=== PATIENT | female | born 1985 | race Caucasian/White ===

== ENCOUNTER 2016-11-11 19:48 | Emergency (ER) | payer MEDICAID ==
[~2016-11-11] VITALS: Ht 167.6 cm; Wt 125.9 kg
[~2016-11-11 19:48] MED LIST: ALBU8HFA4 IH; CHLO100T24 PO; CLOT15C TP; DIVA500T69 PO; LAMO25 PO; METR500 PO; MULT-29 PO; NYST15CR35 TP; SERT100T PO
[2016-11-11] MEDS ORDERED: HALOPERIDOL LACTATE 5 MG/ML VIAL IM ONE (21:00)
[2016-11-11] MEDS ORDERED: DiphenhydrAMINE HCL 50 MG/ML VIAL IM ONE (21:00)
[2016-11-11] MEDS ORDERED: LORazepam 2 MG/ML VIAL IM ONE (21:00)
[2016-11-11] MEDS ORDERED: BACITRACIN 0.9 GM PACKET OINTMENT TP ONE (23:15)
[2016-11-12 01:05] VITALS: BP 109/82
[2016-11-12] MEDS ORDERED: BENZ0.5T6 PO (08:53)
[2016-11-12] MEDS ORDERED: ARIP2 PO (08:53)
[2016-11-12] MEDS ORDERED: LITH8SOL6 PO (08:53)
[2016-11-12] MEDS ORDERED: OLAN2.5T3 PO (08:53)
== END 2016-11-12 01:26 | disposition home or self-care (01) ==
LOC: EMS 19:51
DX: F25.9 Schizoaffective disorder, unspecified (principal); L89.899 Pressure ulcer of other site, unspecified stage; F31.9 Bipolar disorder, unspecified; F41.9 Anxiety disorder, unspecified; F17.210 Nicotine dependence, cigarettes, uncomplicated; Z88.8 Allergy status to other drugs, medicaments and biological substances
CPT/HCPCS: 96372; 99284; J1200; J1630; J2060

== ENCOUNTER 2016-11-12 08:42 | Inpatient (IN) | payer MEDICAID ==
[~2016-11-12] VITALS: Ht 167.6 cm; Wt 135.2 kg
[2016-11-12] MEDS ORDERED: LITH8SOL6 PO (08:53)
[2016-11-12] MEDS ORDERED: OLAN2.5T3 PO (08:53)
[2016-11-12] MEDS ORDERED: BENZ0.5T6 PO (08:53)
[2016-11-12] MEDS ORDERED: ARIP2 PO (08:53)
[2016-11-12] MEDS ORDERED: HALOPERIDOL LACTATE 5 MG/ML VIAL IM ONE (09:45)
[2016-11-12] MEDS ORDERED: LORazepam 2 MG/ML VIAL IM ONE (09:45)
[2016-11-12] MEDS ORDERED: DiphenhydrAMINE HCL 50 MG/ML VIAL IM ONE (09:45)
[2016-11-12 10:24] LABS: BASOPHILS % (AUTO) 0.3 % (0.0-2.0); EOSINOPHILS % (AUTO) 4.3 % (1.0-6.0); HEMATOCRIT 39.6 % (36-46); HEMOGLOBIN 12.8 g/dL (12.0-16.0); LYMPHOCYTES # (AUTO) 1.9 K/uL (1.0-4.8); LYMPHOCYTES % (AUTO) 25.7 % (22.0-44.0); MEAN CORPUSCULAR HEMOGLOBIN 26.9 pg (26.0-34.0); MEAN CORPUSCULAR HGB CONC 32.4 G/dL (31.0-37.0); MEAN CORPUSCULAR VOLUME 83 fL (80-100); MONOCYTES # (AUTO) 0.5 K/uL (0.1-1.0); MONOCYTES % (AUTO) 6.9 % (2.0-9.0); NEUTROPHILS # (AUTO) 4.5 K/uL (1.8-7.7); NEUTROPHILS % (AUTO) 62.8 % (40.0-70.0); PLATELET COUNT (AUTO) 179 K/uL (150-450); RED BLOOD CELL COUNT(AUTO) 4.76 MIL/uL (4.00-5.20); RED CELL DISTRIBUTION WIDTH 13.2 % (11.5-14.5); WHITE BLOOD COUNT (AUTO) 7.2 K/uL (4.5-11.0)
[2016-11-12 10:33] LABS: ANION GAP 6 mmol/L (8-16); CALCIUM, TOTAL 9.2 mg/dL (8.8-10.5); CARBON DIOXIDE 32 mmol/L (22-29); CHLORIDE 107 mmol/L (98-107); CREATININE 0.73 mg/dL (0.60-1.30); GLOMERULAR FILTR. RATE CALC > 60 mL/min (>60); POTASSIUM 3.5 mmol/L (3.5-5.1); SODIUM SERUM 145 mmol/L (136-145); UREA NITROGEN, BLOOD 12 mg/dL (7-18)
[2016-11-12 10:39] LABS: ALANINE AMINOTRANSFERASE 36 U/L (12-78); ALBUMIN 2.9 g/dL (3.4-5.0); ASPARTATE AMINOTRANSFERASE 21 U/L (15-37); BILIRUBIN,TOTAL 0.4 mg/dL (0.1-1.0); TOTAL PROTEIN, SERUM 6.7 g/dL (6.4-8.2)
[2016-11-12] MEDS ORDERED: OLANZapine 5 MG RAPDIS TABLET PO PRN (20:45)
[2016-11-12 21:20] LABS: CHOL/HDL RATIO 1.9 (3.9-5.7); THYROID STIMULATING HORMONE 1.17 uIU/mL (0.36-3.74)
[2016-11-12 22:02] VITALS: BP 114/60
[2016-11-12] MEDS ORDERED: -PHARMACY VACCINE NOTE- MISC ONE ×2 (22:15)
[2016-11-12] MEDS ORDERED: PNEUMOCOCCAL VACCINE POLYVALENT 0.5 ML VIAL [PPSV23] IM ONE (22:15)
[2016-11-12] MEDS ORDERED: ALBUTEROL SULFATE HFA 90 MCG/PUFF 8 GM INHALER IH PRN (23:15)
[2016-11-13 05:51] VITALS: BP 116/64
[2016-11-13 08:02] LABS: APPEARANCE,URINE CLOUDY (CLEAR); GLUCOSE, URINE (UA) NEGATIVE (NEGATIVE); KETONES,URINE NEGATIVE (NEGATIVE); LEUKOCYTE ESTERASE ,URINE TRACE (NEGATIVE); OCCULT BLOOD,URINE LARGE (NEGATIVE); PH,URINE 6.5 (5.0-8.0); PROTEIN,URINE NEGATIVE (NEGATIVE)
[2016-11-13 08:10] LABS: ADD UA MICROSCOPIC YES
[2016-11-13 08:16] LABS: CALCIUM OXALATE CRYSTALS,UR Many /LPF (None Seen); SQUAMOUS EPITHELIAL CELL,UR Many /LPF (None Seen)
[2016-11-13] MEDS: NICOTINE 14 MG/24 HOUR PATCH TD SCH (08:53)
[2016-11-13] MEDS ORDERED: MAG HYDROX/AL HYDROX/SIMETH ES 30 ML SUSPENSION UDCUP PO PRN (12:30)
[2016-11-13] MEDS ORDERED: TUBERCULIN, PURIFIED PROTEIN DERIVATIVE 5 TU/0.1 ML SYG ID ONE (12:30)
[2016-11-13] MEDS ORDERED: LOPERAMIDE HCL 2 MG CAPSULE PO PRN (12:30)
[2016-11-13] MEDS ORDERED: CYANOCOBALAMIN 1,000 MCG/ML VIAL IM ONE (12:30)
[2016-11-13] MEDS ORDERED: PROMETHAZINE HCL 25 MG TABLET PO PRN (12:30)
[2016-11-13] MEDS ORDERED: HydrOXYzine PAMOATE 50 MG CAPSULE PO PRN (12:30)
[2016-11-13] MEDS ORDERED: MAGNESIUM HYDROXIDE SUSPENSION 30 ML UDCUP PO PRN (12:30)
[2016-11-13] MEDS ORDERED: GuaiFENesin/D-METHORPHAN [SUGAR-FREE] 200-20MG/10 ML SYRUP UDCUP PO PRN (12:30)
[2016-11-13] MEDS ORDERED: ACETAMINOPHEN 325 MG TABLET PO PRN (12:30)
[2016-11-13 16:30] VITALS: BP 117/63
[2016-11-13] MEDS: THIAMINE HCL 100 MG TABLET PO SCH (17:00)
[2016-11-13] MEDS ORDERED: DiphenhydrAMINE HCL 50 MG/ML VIAL ONE (17:58)
[2016-11-13] MEDS ORDERED: LORazepam 2 MG/ML VIAL ONE (17:58)
[2016-11-13] MEDS ORDERED: HALOPERIDOL LACTATE 5 MG/ML VIAL ONE (17:59)
[2016-11-13] MEDS ORDERED: HALOPERIDOL LACTATE 5 MG/ML VIAL IM PRN (18:00)
[2016-11-13] MEDS ORDERED: HALOPERIDOL LACTATE 5 MG/ML VIAL IM ONE (18:00)
[2016-11-13] MEDS ORDERED: LORazepam 2 MG/ML VIAL IM ONE (18:00)
[2016-11-13] MEDS ORDERED: DiphenhydrAMINE HCL 50 MG/ML VIAL IM ONE (18:00)
[2016-11-13] MEDS ORDERED: OLANZapine 5 MG RAPDIS TABLET PO SCH (21:00)
[2016-11-13] MEDS: DIVALPROEX SODIUM 500 MG ER TABLET PO SCH (21:17)
[2016-11-14] MEDS: NICOTINE 14 MG/24 HOUR PATCH TD SCH (09:00)
[2016-11-14] MEDS: FOLIC ACID 1 MG TABLET PO SCH (09:17)
[2016-11-14] MEDS: NALTREXONE HCL 50 MG TABLET PO SCH (09:17)
[2016-11-14] MEDS: THIAMINE HCL 100 MG TABLET PO SCH ×3 (09:17→17:00)
[2016-11-14] MEDS: LORazepam 2 MG TABLET PO PRN (09:17)
[2016-11-14] MEDS: MULTIVITAMINS WITH MINERALS, THERAPEUTIC TABLET PO SCH (09:17)
[2016-11-14] MEDS ORDERED: LORazepam 2 MG/ML VIAL ONE (11:25)
[2016-11-14] MEDS ORDERED: LORazepam 2 MG/ML VIAL IM ONE ×2 (11:30→15:45)
[2016-11-14] MEDS ORDERED: HALOPERIDOL LACTATE 5 MG/ML VIAL IM ONE ×2 (11:30→15:45)
[2016-11-14] MEDS ORDERED: DiphenhydrAMINE HCL 50 MG/ML VIAL IM ONE ×2 (11:30→15:45)
[2016-11-14] MEDS: DIVALPROEX SODIUM 500 MG ER TABLET PO SCH (21:26)
[2016-11-14] MEDS: OLANZapine 10 MG RAPDIS TABLET PO SCH (21:26)
[2016-11-15] MEDS: NALTREXONE HCL 50 MG TABLET PO SCH (09:00)
[2016-11-15] MEDS: THIAMINE HCL 100 MG TABLET PO SCH ×2 (09:00→16:59)
[2016-11-15] MEDS: NICOTINE 14 MG/24 HOUR PATCH TD SCH (09:00)
[2016-11-15] MEDS: MULTIVITAMINS WITH MINERALS, THERAPEUTIC TABLET PO SCH (09:00)
[2016-11-15] MEDS: FOLIC ACID 1 MG TABLET PO SCH (09:00)
[2016-11-15 16:08] VITALS: BP 108/67
[2016-11-15] MEDS: DIVALPROEX SODIUM 500 MG ER TABLET PO SCH (20:20)
[2016-11-15] MEDS: OLANZapine 10 MG RAPDIS TABLET PO SCH (20:20)
[2016-11-15] MEDS: LITHIUM CARBONATE 300 MG CAPSULE PO SCH (20:20)
[2016-11-16] MEDS: MULTIVITAMINS WITH MINERALS, THERAPEUTIC TABLET PO SCH (08:46)
[2016-11-16] MEDS: FOLIC ACID 1 MG TABLET PO SCH (08:46)
[2016-11-16] MEDS: THIAMINE HCL 100 MG TABLET PO SCH ×2 (08:46→16:06)
[2016-11-16] MEDS: NALTREXONE HCL 50 MG TABLET PO SCH (08:46)
[2016-11-16] MEDS: NICOTINE 14 MG/24 HOUR PATCH TD SCH (08:51)
[2016-11-16 16:00] VITALS: BP 120/63
[2016-11-16] MEDS: LITHIUM CARBONATE 300 MG CAPSULE PO SCH (20:27)
[2016-11-16] MEDS: OLANZapine 10 MG RAPDIS TABLET PO SCH (20:27)
[2016-11-16] MEDS: DIVALPROEX SODIUM 500 MG ER TABLET PO SCH (20:27)
[2016-11-17 07:15] VITALS: BP 135/77
[2016-11-17] MEDS: FOLIC ACID 1 MG TABLET PO SCH (08:24)
[2016-11-17] MEDS: NALTREXONE HCL 50 MG TABLET PO SCH (08:24)
[2016-11-17] MEDS: MULTIVITAMINS WITH MINERALS, THERAPEUTIC TABLET PO SCH (08:24)
[2016-11-17] MEDS: THIAMINE HCL 100 MG TABLET PO SCH ×2 (08:24→16:08)
[2016-11-17] MEDS: NICOTINE 14 MG/24 HOUR PATCH TD SCH (09:00)
[2016-11-17 16:00] VITALS: BP 109/64
[2016-11-17] MEDS: OLANZapine 10 MG RAPDIS TABLET PO SCH (20:10)
[2016-11-17] MEDS: DIVALPROEX SODIUM 500 MG ER TABLET PO SCH (20:10)
[2016-11-17] MEDS: LITHIUM CARBONATE 300 MG CAPSULE PO SCH (20:10)
[2016-11-18 06:15] VITALS: BP 111/82
[2016-11-18] MEDS: THIAMINE HCL 100 MG TABLET PO SCH ×2 (08:56→16:35)
[2016-11-18] MEDS: NICOTINE 14 MG/24 HOUR PATCH TD SCH (08:56)
[2016-11-18] MEDS: NALTREXONE HCL 50 MG TABLET PO SCH (08:56)
[2016-11-18] MEDS: FOLIC ACID 1 MG TABLET PO SCH (08:56)
[2016-11-18] MEDS: MULTIVITAMINS WITH MINERALS, THERAPEUTIC TABLET PO SCH (08:56)
[2016-11-18 09:14] VITALS: BP 122/72
[2016-11-18 16:10] VITALS: BP 131/84
[2016-11-18] MEDS: LITHIUM CARBONATE 300 MG CAPSULE PO SCH (20:20)
[2016-11-18] MEDS: OLANZapine 10 MG RAPDIS TABLET PO SCH (20:20)
[2016-11-18] MEDS: DIVALPROEX SODIUM 500 MG ER TABLET PO SCH (20:20)
[2016-11-18] MEDS: ZOLPIDEM TARTRATE 10 MG TABLET PO PRN (22:17)
[2016-11-19] MEDS: NICOTINE 14 MG/24 HOUR PATCH TD SCH (08:45)
[2016-11-19] MEDS: NALTREXONE HCL 50 MG TABLET PO SCH (08:46)
[2016-11-19] MEDS: THIAMINE HCL 100 MG TABLET PO SCH ×2 (08:46→16:05)
[2016-11-19] MEDS: MULTIVITAMINS WITH MINERALS, THERAPEUTIC TABLET PO SCH (08:46)
[2016-11-19] MEDS: FOLIC ACID 1 MG TABLET PO SCH (08:46)
[2016-11-19 16:00] VITALS: BP 103/65
[2016-11-19] MEDS: LITHIUM CARBONATE 300 MG CAPSULE PO SCH (20:05)
[2016-11-19] MEDS: OLANZapine 10 MG RAPDIS TABLET PO SCH (20:05)
[2016-11-19] MEDS: DIVALPROEX SODIUM 500 MG ER TABLET PO SCH (20:05)
[2016-11-20 07:03] VITALS: BP 115/70
[2016-11-20 08:40] LABS: LITHIUM 0.55 mmol/L (0.60-1.20)
[2016-11-20] MEDS: MULTIVITAMINS WITH MINERALS, THERAPEUTIC TABLET PO SCH (08:46)
[2016-11-20] MEDS: NALTREXONE HCL 50 MG TABLET PO SCH (08:46)
[2016-11-20] MEDS: THIAMINE HCL 100 MG TABLET PO SCH ×2 (08:46→16:23)
[2016-11-20] MEDS: FOLIC ACID 1 MG TABLET PO SCH (08:47)
[2016-11-20] MEDS: NICOTINE 14 MG/24 HOUR PATCH TD SCH (08:47)
[2016-11-20 16:03] VITALS: BP 119/73
[2016-11-20] MEDS: OLANZapine 10 MG RAPDIS TABLET PO SCH (20:07)
[2016-11-20] MEDS: LITHIUM CARBONATE 600 MG CAPSULE PO SCH (20:07)
[2016-11-20] MEDS: DIVALPROEX SODIUM 500 MG ER TABLET PO SCH (20:08)
[2016-11-20] MEDS: ZOLPIDEM TARTRATE 10 MG TABLET PO PRN (21:01)
[2016-11-21] MEDS: MULTIVITAMINS WITH MINERALS, THERAPEUTIC TABLET PO SCH (08:26)
[2016-11-21] MEDS: THIAMINE HCL 100 MG TABLET PO SCH ×2 (08:26→16:33)
[2016-11-21] MEDS: NALTREXONE HCL 50 MG TABLET PO SCH (08:26)
[2016-11-21] MEDS: FOLIC ACID 1 MG TABLET PO SCH (08:26)
[2016-11-21] MEDS: NICOTINE 14 MG/24 HOUR PATCH TD SCH (09:00)
[2016-11-21] MEDS ORDERED: PERMETHRIN 5% 60 GM CREAM TP ONE (10:00)
[2016-11-21] MEDS ORDERED: PERMETHRIN 1% 60 ML LOTION TP ONE (12:00)
[2016-11-21 16:22] VITALS: BP 126/81
[2016-11-21] MEDS: DIVALPROEX SODIUM 500 MG ER TABLET PO SCH (20:06)
[2016-11-21] MEDS: MIRTAZAPINE 15 MG TABLET PO SCH (20:07)
[2016-11-21] MEDS: OLANZapine 10 MG RAPDIS TABLET PO SCH (20:07)
[2016-11-21] MEDS: LITHIUM CARBONATE 600 MG CAPSULE PO SCH (20:07)
[2016-11-22 06:24] VITALS: BP 126/82
[2016-11-22] MEDS: NICOTINE 14 MG/24 HOUR PATCH TD SCH (09:00)
[2016-11-22] MEDS: MULTIVITAMINS WITH MINERALS, THERAPEUTIC TABLET PO SCH (09:23)
[2016-11-22] MEDS: NALTREXONE HCL 50 MG TABLET PO SCH (09:23)
[2016-11-22] MEDS: FOLIC ACID 1 MG TABLET PO SCH (09:23)
[2016-11-22] MEDS: THIAMINE HCL 100 MG TABLET PO SCH ×2 (09:23→16:02)
[2016-11-22 16:16] VITALS: BP 112/60
[2016-11-22] MEDS: DIVALPROEX SODIUM 500 MG ER TABLET PO SCH (20:04)
[2016-11-22] MEDS: LITHIUM CARBONATE 600 MG CAPSULE PO SCH (20:04)
[2016-11-22] MEDS: OLANZapine 10 MG RAPDIS TABLET PO SCH (20:04)
[2016-11-22] MEDS: MIRTAZAPINE 15 MG TABLET PO SCH (20:04)
[2016-11-23 08:16] VITALS: BP 122/86
[2016-11-23] MEDS: NICOTINE 14 MG/24 HOUR PATCH TD SCH (09:00)
[2016-11-23] MEDS: NALTREXONE HCL 50 MG TABLET PO SCH (09:09)
[2016-11-23] MEDS: THIAMINE HCL 100 MG TABLET PO SCH (09:09)
[2016-11-23] MEDS: MULTIVITAMINS WITH MINERALS, THERAPEUTIC TABLET PO SCH (09:09)
[2016-11-23] MEDS: FOLIC ACID 1 MG TABLET PO SCH (09:09)
[2016-11-23 16:03] VITALS: BP 121/61
[2016-11-23] MEDS ORDERED: IVERMECTIN 3 MG TABLET PO ONE (17:30)
[2016-11-23] MEDS: DIVALPROEX SODIUM 500 MG ER TABLET PO SCH (20:18)
[2016-11-23] MEDS: MIRTAZAPINE 15 MG TABLET PO SCH (20:19)
[2016-11-23] MEDS: OLANZapine 10 MG RAPDIS TABLET PO SCH (20:19)
[2016-11-23] MEDS: LITHIUM CARBONATE 600 MG CAPSULE PO SCH (20:19)
[2016-11-24 06:50] VITALS: BP 118/70
[2016-11-24] MEDS: NALTREXONE HCL 50 MG TABLET PO SCH (08:01)
[2016-11-24] MEDS: MULTIVITAMINS WITH MINERALS, THERAPEUTIC TABLET PO SCH (08:01)
[2016-11-24 08:43] VITALS: BP 117/67
[2016-11-24 16:08] VITALS: BP 122/81
[2016-11-24] MEDS: OLANZapine 10 MG RAPDIS TABLET PO SCH (20:03)
[2016-11-24] MEDS: LITHIUM CARBONATE 600 MG CAPSULE PO SCH (20:03)
[2016-11-24] MEDS: DIVALPROEX SODIUM 500 MG ER TABLET PO SCH (20:04)
[2016-11-24] MEDS: MIRTAZAPINE 15 MG TABLET PO SCH (20:04)
[2016-11-25 07:13] VITALS: BP 110/72
[2016-11-25] MEDS: MULTIVITAMINS WITH MINERALS, THERAPEUTIC TABLET PO SCH (08:03)
[2016-11-25] MEDS: NALTREXONE HCL 50 MG TABLET PO SCH (08:03)
[2016-11-25 08:20] VITALS: BP 110/69
[2016-11-25] MEDS ORDERED: LORazepam 2 MG TABLET PO PRN (13:45)
[2016-11-25] MEDS ORDERED: ZOLPIDEM TARTRATE 10 MG TABLET PO PRN (13:45)
[2016-11-25 16:18] VITALS: BP 117/81
[2016-11-25] MEDS: LORazepam 2 MG TABLET PO PRN (16:19)
[2016-11-25] MEDS: DIVALPROEX SODIUM 500 MG ER TABLET PO SCH (20:09)
[2016-11-25] MEDS: LITHIUM CARBONATE 600 MG CAPSULE PO SCH (20:10)
[2016-11-25] MEDS: MIRTAZAPINE 15 MG TABLET PO SCH (20:10)
[2016-11-25] MEDS: OLANZapine 10 MG RAPDIS TABLET PO SCH (20:10)
[2016-11-26 07:06] VITALS: BP 112/80
[2016-11-26] MEDS ORDERED: DIVA500T52 PO (07:46)
[2016-11-26] MEDS ORDERED: NALT50 PO (07:46)
[2016-11-26] MEDS ORDERED: MIRT15 PO (07:46)
[2016-11-26] MEDS ORDERED: LITH600 PO (07:46)
[2016-11-26] MEDS ORDERED: OLAN10TA6 PO (07:46)
[2016-11-26 08:34] VITALS: BP 145/74
[2016-11-26] MEDS: MULTIVITAMINS WITH MINERALS, THERAPEUTIC TABLET PO SCH (08:35)
[2016-11-26] MEDS: NALTREXONE HCL 50 MG TABLET PO SCH (08:35)
== END 2016-11-26 10:30 | disposition home or self-care (01) | DRG 750 ==
LOC: EMS 08:45 → EEVIPCON 08:45 → B3A 21:00
PROVIDERS: ADMIT Psychiatry & Neurology Psychiatry; ATTEND Psychiatry & Neurology Psychiatry
DX: F25.0 Schizoaffective disorder, bipolar type (principal); R45.851 Suicidal ideations; Z68.42 Body mass index [BMI] 45.0-49.9, adult; I10 Essential (primary) hypertension; E66.01 Morbid (severe) obesity due to excess calories; F15.90 Other stimulant use, unspecified, uncomplicated; F19.10 Other psychoactive substance abuse, uncomplicated; F17.210 Nicotine dependence, cigarettes, uncomplicated; G47.33 Obstructive sleep apnea (adult) (pediatric); F14.10 Cocaine abuse, uncomplicated; Z53.29 Procedure and treatment not carried out because of patient's decision for other reasons; R45.87 Impulsiveness; Z79.899 Other long term (current) drug therapy; Z91.19 Patient's noncompliance with other medical treatment and regimen; Z88.8 Allergy status to other drugs, medicaments and biological substances; Z90.49 Acquired absence of other specified parts of digestive tract; Z59.0 Homelessness; Z28.21 Immunization not carried out because of patient refusal
CPT/HCPCS: 84443; 87086; 96372; 99285; G0480; J1200; J1630; J2060

== ENCOUNTER 2017-07-10 09:56 | Inpatient (IN) | payer MEDICAID ==
[~2017-07-10] VITALS: Ht 162.6 cm; Wt 135.0 kg
[~2017-07-10 09:56] MED LIST changes: -ALBU8HFA4 IH; -CHLO100T24 PO; -CLOT15C TP; +DIVA500T52 PO; -DIVA500T69 PO; -LAMO25 PO; +LITH600 PO; -METR500 PO; +MIRT15 PO; -MULT-29 PO; +NALT50TA6 PO; -NYST15CR35 TP; +OLAN10TA6 PO; -SERT100T PO
[2017-07-10 10:56] LABS: BASOPHILS % (AUTO) 0.4 % (0.0-2.0); EOSINOPHILS % (AUTO) 2.3 % (1.0-6.0); HEMATOCRIT 40.9 % (36-46); HEMOGLOBIN 13.8 g/dL (12.0-16.0); LYMPHOCYTES # (AUTO) 2.2 K/uL (1.0-4.8); LYMPHOCYTES % (AUTO) 23.6 % (22.0-44.0); MEAN CORPUSCULAR HEMOGLOBIN 27.2 pg (26.0-34.0); MEAN CORPUSCULAR HGB CONC 33.7 G/dL (31.0-37.0); MEAN CORPUSCULAR VOLUME 81 fL (80-100); MONOCYTES # (AUTO) 0.9 K/uL (0.1-1.0); MONOCYTES % (AUTO) 9.3 % (2.0-9.0); NEUTROPHILS # (AUTO) 6.1 K/uL (1.8-7.7); NEUTROPHILS % (AUTO) 64.4 % (40.0-70.0); PLATELET COUNT (AUTO) 235 K/uL (150-450); RED BLOOD CELL COUNT(AUTO) 5.06 MIL/uL (4.00-5.20); RED CELL DISTRIBUTION WIDTH 15.4 % (11.5-14.5)
[2017-07-10 11:08] LABS: ANION GAP 9 mmol/L (8-16); CALCIUM, TOTAL 9.8 mg/dL (8.8-10.5); CARBON DIOXIDE 30 mmol/L (22-29); CHLORIDE 99 mmol/L (98-107); CREATININE 0.89 mg/dL (0.60-1.30); GLOMERULAR FILTR. RATE CALC > 60 mL/min (>60); GLUCOSE,RANDOM 82 mg/dL (70-110); POTASSIUM 3.5 mmol/L (3.5-5.1); SODIUM SERUM 138 mmol/L (136-145); UREA NITROGEN, BLOOD 16 mg/dL (7-18)
[2017-07-10 11:13] LABS: ALANINE AMINOTRANSFERASE 39 U/L (12-78); ALBUMIN 3.5 g/dL (3.4-5.0); ALKALINE PHOSPHATASE 104 U/L (46-116); ASPARTATE AMINOTRANSFERASE 26 U/L (15-37); BILIRUBIN,TOTAL 0.4 mg/dL (0.1-1.0); TOTAL PROTEIN, SERUM 7.8 g/dL (6.4-8.2)
[2017-07-10 11:16] LABS: AMPHET/METH SCREEN,URINE POSITIVE (NEGATIVE); BARBITURATE SCREEN, URINE NEGATIVE (NEGATIVE); BENZODIAZEPINES SCREEN,URINE NEGATIVE (NEGATIVE); CANNABINOID SCREEN,URINE NEGATIVE (NEGATIVE); COCAINE SCREEN,URINE NEGATIVE (NEGATIVE); METHADONE SCREEN, URINE NEGATIVE (NEGATIVE); OPIATE SCREEN,URINE NEGATIVE (NEGATIVE)
[2017-07-10 11:18] LABS: PHENCYCLIDINE SCREEN,URINE NEGATIVE (NEGATIVE)
[2017-07-10] MEDS ORDERED: LORazepam 1 MG TABLET PO ONE (11:30)
[2017-07-10] MEDS ORDERED: DiphenhydrAMINE HCL 50 MG CAPSULE PO ONE (11:30)
[2017-07-10 11:33] LABS: LITHIUM < 0.20 mmol/L (0.60-1.20)
[2017-07-10 11:40] LABS: VALPROIC ACID 4 mcg/mL (50-100)
[2017-07-10] MEDS ORDERED: LORazepam 2 MG TABLET PO PRN (11:45)
[2017-07-10] MEDS ORDERED: ZOLPIDEM TARTRATE 10 MG TABLET PO PRN (11:45)
[2017-07-10] MEDS: HALOPERIDOL 5 MG TABLET PO PRN (12:10)
[2017-07-10] MEDS ORDERED: HALOPERIDOL LACTATE 5 MG/ML VIAL IM ONE (14:00)
[2017-07-10] MEDS ORDERED: LORazepam 2 MG/ML VIAL IM ONE (14:00)
[2017-07-10 16:23] VITALS: BP 116/74
[2017-07-10] MEDS ORDERED: ACETAMINOPHEN 325 MG TABLET PO PRN (19:30)
[2017-07-11] MEDS ORDERED: INFLUENZA VIRUS VACCINE QVS 2017-18 (3YR+)/PF 60 MCG/0.5 ML SYRINGE IM ONE (06:00)
[2017-07-11 08:00] VITALS: BP 107/72
[2017-07-11 16:00] VITALS: BP 117/64
[2017-07-11] MEDS ORDERED: HALOPERIDOL LACTATE 5 MG/ML VIAL IM PRN (19:00)
[2017-07-11] MEDS: DIVALPROEX SODIUM 500 MG ER TABLET PO SCH (21:05)
[2017-07-11] MEDS: ARIPiprazole 10 MG TABLET PO SCH (21:05)
[2017-07-12] MEDS: LITHIUM CARBONATE 300 MG CAPSULE PO SCH ×2 (08:34→16:48)
[2017-07-12 08:42] VITALS: BP 109/62
[2017-07-12 16:00] VITALS: BP 117/76
[2017-07-12] MEDS: DIVALPROEX SODIUM 500 MG ER TABLET PO SCH (21:15)
[2017-07-12] MEDS: ARIPiprazole 10 MG TABLET PO SCH (21:15)
[2017-07-13] MEDS: IBUPROFEN 400 MG TABLET PO PRN (00:08)
[2017-07-13 00:09] VITALS: BP 118/74
[2017-07-13 00:19] VITALS: BP 118/74
[2017-07-13] MEDS: LITHIUM CARBONATE 300 MG CAPSULE PO SCH ×2 (08:57→16:21)
[2017-07-13 13:25] VITALS: BP 120/79
[2017-07-13] MEDS: ARIPiprazole 10 MG TABLET PO SCH (20:33)
[2017-07-13] MEDS: DIVALPROEX SODIUM 500 MG ER TABLET PO SCH (20:33)
[2017-07-14 08:09] VITALS: BP 124/67
[2017-07-14] MEDS: LITHIUM CARBONATE 300 MG CAPSULE PO SCH ×2 (08:28→16:09)
[2017-07-14 10:19] VITALS: BP 124/67
[2017-07-14 17:54] VITALS: BP 138/82
[2017-07-14] MEDS: IBUPROFEN 400 MG TABLET PO PRN (17:54)
[2017-07-14] MEDS: DIVALPROEX SODIUM 500 MG ER TABLET PO SCH (20:14)
[2017-07-14] MEDS: ARIPiprazole 10 MG TABLET PO SCH (20:14)
[2017-07-15 08:23] VITALS: BP 135/100
[2017-07-15] MEDS: LITHIUM CARBONATE 300 MG CAPSULE PO SCH ×2 (08:48→16:15)
[2017-07-15 16:57] VITALS: BP 132/82
[2017-07-15] MEDS: IBUPROFEN 400 MG TABLET PO PRN (18:32)
[2017-07-15] MEDS: ARIPiprazole 10 MG TABLET PO SCH (20:19)
[2017-07-15] MEDS: DIVALPROEX SODIUM 500 MG ER TABLET PO SCH (20:19)
[2017-07-16 08:35] VITALS: BP 141/99
[2017-07-16 08:39] VITALS: BP 141/99
[2017-07-16] MEDS: LITHIUM CARBONATE 300 MG CAPSULE PO SCH ×2 (08:48→16:50)
[2017-07-16 16:00] VITALS: BP 129/87
[2017-07-16] MEDS: ARIPiprazole 10 MG TABLET PO SCH (20:03)
[2017-07-16] MEDS: DIVALPROEX SODIUM 500 MG ER TABLET PO SCH (20:05)
[2017-07-17] MEDS: LITHIUM CARBONATE 300 MG CAPSULE PO SCH ×2 (08:23→16:36)
[2017-07-17 08:27] VITALS: BP 149/95
[2017-07-17 16:15] VITALS: BP 142/93
[2017-07-17] MEDS: IBUPROFEN 400 MG TABLET PO PRN (16:15)
[2017-07-17] MEDS: DIVALPROEX SODIUM 500 MG ER TABLET PO SCH (20:49)
[2017-07-17] MEDS: ARIPiprazole 10 MG TABLET PO SCH (20:49)
[2017-07-18] MEDS: HALOPERIDOL 5 MG TABLET PO PRN (02:31)
[2017-07-18] MEDS: LITHIUM CARBONATE 300 MG CAPSULE PO SCH ×2 (08:04→16:26)
[2017-07-18 08:05] VITALS: BP 136/68
[2017-07-18] MEDS: IBUPROFEN 600 MG TABLET PO PRN ×2 (08:05→19:57)
[2017-07-18 09:05] VITALS: BP 130/87
[2017-07-18 16:01] VITALS: BP 136/73
[2017-07-18] MEDS: ARIPiprazole 10 MG TABLET PO SCH (20:13)
[2017-07-18] MEDS: DIVALPROEX SODIUM 500 MG ER TABLET PO SCH (20:13)
[2017-07-19] MEDS ORDERED: ARIP10TA8 PO (08:22)
[2017-07-19] MEDS ORDERED: ARIP400S3 IM (08:22)
[2017-07-19] MEDS ORDERED: ARIPiprazole ER SUSPENSION 400 MG PRE-FILLED DUAL CHAMBER SYRINGE IM SCH (09:00)
[2017-07-19] MEDS: LITHIUM CARBONATE 300 MG CAPSULE PO SCH ×2 (09:13→16:10)
[2017-07-19] MEDS ORDERED: LITH300C3 PO (11:11)
[2017-07-19 11:13] VITALS: BP 131/87
[2017-07-19 17:32] VITALS: BP 113/52
[2017-07-19] MEDS: ARIPiprazole 10 MG TABLET PO SCH (20:43)
[2017-07-19] MEDS: DIVALPROEX SODIUM 500 MG ER TABLET PO SCH (20:44)
[2017-07-20 08:29] VITALS: BP 128/86
[2017-07-20] MEDS: LITHIUM CARBONATE 300 MG CAPSULE PO SCH ×2 (09:15→16:14)
[2017-07-20 16:36] VITALS: BP 134/74
[2017-07-20] MEDS: ARIPiprazole 10 MG TABLET PO SCH (20:49)
[2017-07-20] MEDS: DIVALPROEX SODIUM 500 MG ER TABLET PO SCH (20:50)
[2017-07-21 08:19] VITALS: BP 127/81
[2017-07-21] MEDS: LITHIUM CARBONATE 300 MG CAPSULE PO SCH ×2 (09:16→17:20)
[2017-07-21 16:39] VITALS: BP 147/74
[2017-07-21] MEDS: ARIPiprazole 10 MG TABLET PO SCH (21:59)
[2017-07-21] MEDS: DIVALPROEX SODIUM 500 MG ER TABLET PO SCH (21:59)
[2017-07-22 08:05] VITALS: BP 135/77
[2017-07-22] MEDS: LITHIUM CARBONATE 300 MG CAPSULE PO SCH ×2 (09:13→16:33)
[2017-07-22] MEDS ORDERED: ONDANSETRON HCL 4 MG TABLET PO PRN (12:15)
[2017-07-22] MEDS: IBUPROFEN 600 MG TABLET PO PRN ×2 (15:56→17:07)
[2017-07-22 17:01] VITALS: BP 124/83
[2017-07-22 17:07] VITALS: BP 126/81
[2017-07-22 18:07] VITALS: BP 131/74
[2017-07-22] MEDS: ARIPiprazole 10 MG TABLET PO SCH (21:30)
[2017-07-22] MEDS: DIVALPROEX SODIUM 500 MG ER TABLET PO SCH (21:30)
[2017-07-23] MEDS: IBUPROFEN 600 MG TABLET PO PRN (05:50)
[2017-07-23 05:52] VITALS: BP 128/86
[2017-07-23] MEDS: LITHIUM CARBONATE 300 MG CAPSULE PO SCH (08:58)
[2017-07-23 12:01] VITALS: BP 141/75
[2017-08-15] MEDS ORDERED: ARIPiprazole ER SUSPENSION 400 MG PRE-FILLED DUAL CHAMBER SYRINGE IM SCH (09:00)
== END 2017-07-23 12:00 | disposition home or self-care (01) | DRG 750 ==
LOC: EMS 09:58 → 3EC 13:47 → 3EI 07-18 18:25
PROVIDERS: ADMIT Psychiatry & Neurology Psychiatry; ATTEND Psychiatry & Neurology Psychiatry
DX: F25.9 Schizoaffective disorder, unspecified (principal); Z68.43 Body mass index [BMI] 50.0-59.9, adult; E66.01 Morbid (severe) obesity due to excess calories; F14.10 Cocaine abuse, uncomplicated; F15.10 Other stimulant abuse, uncomplicated; F17.210 Nicotine dependence, cigarettes, uncomplicated; F79 Unspecified intellectual disabilities; G47.33 Obstructive sleep apnea (adult) (pediatric); F41.9 Anxiety disorder, unspecified; Z78.1 Physical restraint status; Z88.8 Allergy status to other drugs, medicaments and biological substances; Z79.899 Other long term (current) drug therapy; Z90.49 Acquired absence of other specified parts of digestive tract; Z71.51 Drug abuse counseling and surveillance of drug abuser; Z71.6 Tobacco abuse counseling
CPT/HCPCS: 96372; 99285; 99406; G0480; J0401; J1630; J2060; Q0162

== ENCOUNTER 2017-10-03 15:44 | Inpatient (IN) | payer MEDICAID ==
[~2017-10-03] VITALS: Ht 162.6 cm; Wt 139.1 kg
[~2017-10-03 15:44] MED LIST changes: +ARIP10TA8 PO; +ARIP400S3 IM; +LITH300C3 PO; -LITH600 PO; -MIRT15 PO; -NALT50TA6 PO; -OLAN10TA6 PO
[2017-10-03 17:44] LABS: AMPHET/METH SCREEN,URINE POSITIVE (NEGATIVE); BARBITURATE SCREEN, URINE NEGATIVE (NEGATIVE); BENZODIAZEPINES SCREEN,URINE NEGATIVE (NEGATIVE); CANNABINOID SCREEN,URINE NEGATIVE (NEGATIVE); COCAINE SCREEN,URINE NEGATIVE (NEGATIVE); METHADONE SCREEN, URINE NEGATIVE (NEGATIVE); OPIATE SCREEN,URINE NEGATIVE (NEGATIVE); PHENCYCLIDINE SCREEN,URINE NEGATIVE (NEGATIVE)
[2017-10-03 17:51] LABS: BASOPHILS % (AUTO) 0.4 % (0.0-2.0); EOSINOPHILS % (AUTO) 3.5 % (1.0-6.0); HEMATOCRIT 39.2 % (36-46); HEMOGLOBIN 13.1 g/dL (12.0-16.0); LYMPHOCYTES # (AUTO) 2.1 K/uL (1.0-4.8); LYMPHOCYTES % (AUTO) 33.4 % (22.0-44.0); MEAN CORPUSCULAR HEMOGLOBIN 26.3 pg (26.0-34.0); MEAN CORPUSCULAR HGB CONC 33.3 G/dL (31.0-37.0); MEAN CORPUSCULAR VOLUME 79 fL (80-100); MONOCYTES # (AUTO) 0.6 K/uL (0.1-1.0); MONOCYTES % (AUTO) 8.9 % (2.0-9.0); NEUTROPHILS # (AUTO) 3.3 K/uL (1.8-7.7); NEUTROPHILS % (AUTO) 53.8 % (40.0-70.0); PLATELET COUNT (AUTO) 213 K/uL (150-450); RED BLOOD CELL COUNT(AUTO) 4.98 MIL/uL (4.00-5.20); RED CELL DISTRIBUTION WIDTH 14.4 % (11.5-14.5)
[2017-10-03 18:06] LABS: ANION GAP 6 mmol/L (8-16); CALCIUM, TOTAL 9.6 mg/dL (8.8-10.5); CARBON DIOXIDE 29 mmol/L (22-29); CHLORIDE 106 mmol/L (98-107); CREATININE 0.65 mg/dL (0.60-1.30); GLOMERULAR FILTR. RATE CALC > 60 mL/min (>60); GLUCOSE,RANDOM 92 mg/dL (70-110); POTASSIUM 3.9 mmol/L (3.5-5.1); SODIUM SERUM 141 mmol/L (136-145); UREA NITROGEN, BLOOD 10 mg/dL (7-18)
[2017-10-03 18:10] LABS: ALANINE AMINOTRANSFERASE 28 U/L (12-78); ALKALINE PHOSPHATASE 99 U/L (46-116); ASPARTATE AMINOTRANSFERASE 16 U/L (15-37); BILIRUBIN,TOTAL 0.4 mg/dL (0.1-1.0); TOTAL PROTEIN, SERUM 6.9 g/dL (6.4-8.2)
[2017-10-03] MEDS ORDERED: LORazepam 1 MG TABLET PO ONE (19:15)
[2017-10-03] MEDS ORDERED: HALOPERIDOL LACTATE 5 MG/ML VIAL IM ONE (19:30)
[2017-10-03] MEDS ORDERED: DiphenhydrAMINE HCL 50 MG/ML VIAL IM ONE (19:30)
[2017-10-03] MEDS ORDERED: LORazepam 2 MG/ML VIAL IM ONE (19:30)
[2017-10-03 19:47] LABS: LITHIUM < 0.20 mmol/L (0.60-1.20)
[2017-10-03 19:58] LABS: VALPROIC ACID < 3 mcg/mL (50-100)
[2017-10-03 21:15] VITALS: BP 136/76
[2017-10-03] MEDS ORDERED: PNEUMOCOCCAL VACCINE POLYVALENT 0.5 ML VIAL [PPSV23] IM ONE (21:30)
[2017-10-03] MEDS ORDERED: CloNIDine HCL 0.1 MG TABLET PO PRN (21:45)
[2017-10-04] MEDS ORDERED: ACETAMINOPHEN 325 MG TABLET PO PRN (10:00)
[2017-10-04] MEDS ORDERED: LORazepam 2 MG/ML VIAL IM ONE (17:00)
[2017-10-04] MEDS ORDERED: HALOPERIDOL LACTATE 5 MG/ML VIAL IM ONE (17:00)
[2017-10-04] MEDS ORDERED: DiphenhydrAMINE HCL 50 MG/ML VIAL IM ONE (17:00)
[2017-10-05] MEDS: ARIPiprazole 15 MG TABLET PO SCH (09:00)
[2017-10-05] MEDS ORDERED: LORazepam 2 MG/ML VIAL ONE (16:43)
[2017-10-05] MEDS ORDERED: DiphenhydrAMINE HCL 50 MG/ML VIAL ONE (16:44)
[2017-10-05] MEDS ORDERED: HALOPERIDOL LACTATE 5 MG/ML VIAL ONE (16:44)
[2017-10-05] MEDS ORDERED: LORazepam 2 MG/ML VIAL IM ONE (17:15)
[2017-10-05] MEDS ORDERED: HALOPERIDOL LACTATE 5 MG/ML VIAL IM ONE (17:15)
[2017-10-05] MEDS ORDERED: DiphenhydrAMINE HCL 50 MG/ML VIAL IM ONE (17:15)
[2017-10-06] MEDS ORDERED: LORazepam 2 MG/ML VIAL IM ONE ×2 (04:45→12:30)
[2017-10-06] MEDS ORDERED: DiphenhydrAMINE HCL 50 MG/ML VIAL IM ONE ×2 (04:45→12:30)
[2017-10-06] MEDS ORDERED: HALOPERIDOL LACTATE 5 MG/ML VIAL IM ONE ×2 (04:45→12:30)
[2017-10-06] MEDS: ARIPiprazole 15 MG TABLET PO SCH (09:00)
[2017-10-06] MEDS: HALOPERIDOL 5 MG TABLET PO PRN (17:12)
[2017-10-06] MEDS: LORazepam 2 MG TABLET PO PRN (17:12)
[2017-10-06] MEDS: LITHIUM CARBONATE 600 MG CAPSULE PO SCH (17:12)
[2017-10-06] MEDS: DIVALPROEX SODIUM 500 MG DR TABLET PO SCH (21:00)
[2017-10-07] MEDS: LITHIUM CARBONATE 600 MG CAPSULE PO SCH ×2 (08:01→17:04)
[2017-10-07] MEDS: ARIPiprazole 15 MG TABLET PO SCH (08:01)
[2017-10-07] MEDS ORDERED: LORazepam 2 MG/ML VIAL ONE (08:11)
[2017-10-07] MEDS ORDERED: HALOPERIDOL LACTATE 5 MG/ML VIAL ONE (08:11)
[2017-10-07] MEDS ORDERED: DiphenhydrAMINE HCL 50 MG/ML VIAL ONE (08:12)
[2017-10-07] MEDS ORDERED: DiphenhydrAMINE HCL 50 MG/ML VIAL IM ONE ×2 (08:30→13:15)
[2017-10-07] MEDS ORDERED: LORazepam 2 MG/ML VIAL IM ONE ×2 (08:30→13:15)
[2017-10-07] MEDS ORDERED: HALOPERIDOL LACTATE 5 MG/ML VIAL IM ONE ×2 (08:30→13:15)
[2017-10-07] MEDS ORDERED: FluPHENAZine HCL 2.5 MG/ML INJ IM PRN (13:30)
[2017-10-07 13:49] VITALS: BP 111/64
[2017-10-07] MEDS: LORazepam 2 MG TABLET PO PRN (17:04)
[2017-10-07] MEDS: FluPHENAZine HCL 5 MG TABLET PO SCH (17:04)
[2017-10-07] MEDS: HALOPERIDOL 5 MG TABLET PO PRN (18:34)
[2017-10-07] MEDS: DIVALPROEX SODIUM 500 MG DR TABLET PO SCH (20:32)
[2017-10-08 08:00] VITALS: BP 135/91
[2017-10-08] MEDS: FluPHENAZine HCL 5 MG TABLET PO SCH (08:06)
[2017-10-08] MEDS: LITHIUM CARBONATE 600 MG CAPSULE PO SCH ×2 (08:06→16:24)
[2017-10-08] MEDS: LORazepam 2 MG TABLET PO PRN ×2 (08:25→17:12)
[2017-10-08] MEDS: IBUPROFEN 400 MG TABLET PO PRN (14:28)
[2017-10-08 16:15] VITALS: BP 107/63
[2017-10-08] MEDS: ZOLPIDEM TARTRATE 10 MG TABLET PO PRN (20:43)
[2017-10-08] MEDS: DIVALPROEX SODIUM 500 MG DR TABLET PO SCH (20:43)
[2017-10-09] MEDS: LITHIUM CARBONATE 600 MG CAPSULE PO SCH ×2 (08:19→16:48)
[2017-10-09] MEDS: ARIPiprazole 15 MG TABLET PO SCH (08:19)
[2017-10-09 08:49] VITALS: BP 136/65
[2017-10-09] MEDS ORDERED: ARIPiprazole LAUROXIL ER SUSPENSION 882 MG/3.2 ML SYRINGE IM SCH (09:00)
[2017-10-09 16:00] VITALS: BP 132/70
[2017-10-09] MEDS: HALOPERIDOL 5 MG TABLET PO PRN (17:01)
[2017-10-09] MEDS: LORazepam 2 MG TABLET PO PRN (17:01)
[2017-10-09] MEDS: DIVALPROEX SODIUM 500 MG DR TABLET PO SCH (20:17)
[2017-10-09] MEDS: ZOLPIDEM TARTRATE 10 MG TABLET PO PRN (21:41)
[2017-10-10 07:34] VITALS: BP 120/78
[2017-10-10] MEDS: ARIPiprazole 15 MG TABLET PO SCH (08:30)
[2017-10-10] MEDS: LITHIUM CARBONATE 600 MG CAPSULE PO SCH ×2 (08:30→16:00)
[2017-10-10 08:46] VITALS: BP 139/73
[2017-10-10] MEDS: HALOPERIDOL 5 MG TABLET PO PRN ×2 (10:01→17:09)
[2017-10-10] MEDS: LORazepam 2 MG TABLET PO PRN ×2 (10:02→17:09)
[2017-10-10] MEDS: IBUPROFEN 400 MG TABLET PO PRN (16:13)
[2017-10-10 16:43] VITALS: BP 124/69
[2017-10-10] MEDS: DIVALPROEX SODIUM 500 MG DR TABLET PO SCH (21:00)
[2017-10-10] MEDS: ZOLPIDEM TARTRATE 10 MG TABLET PO PRN (21:39)
[2017-10-11] MEDS ORDERED: DIVA500T52 PO (05:55)
[2017-10-11] MEDS ORDERED: ARIP30TA PO (05:55)
[2017-10-11] MEDS ORDERED: LITH300C3 PO (05:57)
[2017-10-11] MEDS ORDERED: ARIP882S IM (06:06)
[2017-10-11 08:21] VITALS: BP 150/106
[2017-10-11] MEDS: ARIPiprazole 15 MG TABLET PO SCH (08:43)
[2017-10-11] MEDS: HALOPERIDOL 5 MG TABLET PO PRN (08:43)
[2017-10-11] MEDS: LITHIUM CARBONATE 600 MG CAPSULE PO SCH (08:43)
[2017-10-11] MEDS: LORazepam 2 MG TABLET PO PRN (08:43)
[2017-11-08] MEDS ORDERED: ARIPiprazole LAUROXIL ER SUSPENSION 882 MG/3.2 ML SYRINGE IM SCH (09:00)
== END 2017-10-11 13:00 | disposition home or self-care (01) | DRG 750 ==
LOC: EMS 15:46 → B3A 20:00
PROVIDERS: ADMIT Psychiatry & Neurology Psychiatry; ATTEND Psychiatry & Neurology Psychiatry
DX: F25.0 Schizoaffective disorder, bipolar type (principal); M41.9 Scoliosis, unspecified; R45.851 Suicidal ideations; F79 Unspecified intellectual disabilities; Z68.43 Body mass index [BMI] 50.0-59.9, adult; F15.20 Other stimulant dependence, uncomplicated; I10 Essential (primary) hypertension; F41.9 Anxiety disorder, unspecified; F10.10 Alcohol abuse, uncomplicated; F17.210 Nicotine dependence, cigarettes, uncomplicated; G47.33 Obstructive sleep apnea (adult) (pediatric); G89.29 Other chronic pain; E66.9 Obesity, unspecified; Z88.8 Allergy status to other drugs, medicaments and biological substances; Z71.41 Alcohol abuse counseling and surveillance of alcoholic; Z59.0 Homelessness; Z87.11 Personal history of peptic ulcer disease; Z91.14 Patient's other noncompliance with medication regimen; Z91.19 Patient's noncompliance with other medical treatment and regimen; Z79.899 Other long term (current) drug therapy
CPT/HCPCS: 90471; 96372; 99285; 99406; G0480; J1200; J1630; J2060